=== PATIENT | female | born 1965 | race Caucasian/White ===

== ENCOUNTER 2022-07-17 15:14 | Day surgery (SDC) | payer OTHER ==
[2022-07-17] MEDS ORDERED: BUPIVACAINE 0.5% VIAL IJ ONE (15:15)
[2022-07-17] MEDS ORDERED: LIDOCAINE HCL 1% 50 MG/5 ML VL PF IJ ONE (15:15)
[2022-07-17] MEDS ORDERED: Depo-Medrol 40 MG/ML IM ONE (15:15)
--- NOTE | 2022-07-17 18:33 | XRAY ---
Indication: Left knee injection. Intraoperative fluoroscopy provided for 6 seconds. Single digital spot image submitted for interpretation demonstrates needle tip projecting over the left femur intercondylar notch. Small amount of contrast injected for needle tip placement. Correlate with intraoperative findings/report.
--- NOTE | 2022-07-17 18:33 | XRAY ---
Indication: Right knee injection. Intraoperative fluoroscopy provided for 3 seconds. Single digital spot image submitted for interpretation demonstrates needle tip projecting over the right femur intercondylar notch. Small amount of contrast injected for needle tip placement. Correlate with intraoperative findings/report.
--- NOTE | 2022-07-18 17:15 | XRAY ---
3 seconds of fluoroscopy was used in surgery for a right knee intra-articular injection.
--- NOTE | 2022-07-18 17:15 | XRAY ---
6 seconds of fluoroscopy was used in surgery for a left knee intra-articular injection.
== END 2022-07-17 16:30 | disposition home or self-care (01) ==
LOC: SDC-PAIN 15:14
PROVIDERS: ATTEND Psychiatry & Neurology Pain Medicine
DX: M17.0 Bilateral primary osteoarthritis of knee (principal); Z79.899 Other long term (current) drug therapy
CPT/HCPCS: 20610; 73560; 77002; 82947; J1030; J2001; Q9966

== ENCOUNTER 2023-11-27 15:36 | Day surgery (SDC) | payer OTHER ==
[2023-11-27] MEDS ORDERED: Depo-Medrol 40 MG/ML IM ONE (15:37)
[2023-11-27] MEDS ORDERED: LIDOCAINE HCL 1% 50 MG/5 ML VL PF IJ ONE (15:37)
[2023-11-27] MEDS ORDERED: BUPIVACAINE 0.5% VIAL IJ ONE (15:37)
--- NOTE | 2023-11-27 20:38 | XRAY ---
Indication: Right knee injection. Intraoperative fluoroscopy provided for 6 seconds. Single digital spot image submitted for interpretation demonstrates needle tip projecting over the right femur intercondylar notch. Small amount of contrast injected for needle tip placement. Correlate with intraoperative findings/report.
--- NOTE | 2023-11-27 20:38 | XRAY ---
Indication: Left knee injection. Intraoperative fluoroscopy provided for 4 seconds. Single digital spot image submitted for interpretation demonstrates needle tip projecting over the left femur intercondylar notch. Small amount of contrast injected for needle tip placement. Correlate with intraoperative findings/report.
--- NOTE | 2023-12-01 13:14 | XRAY ---
6 seconds of fluoroscopy was used in surgery for a right intra-articular knee injection.
--- NOTE | 2023-12-01 13:14 | XRAY ---
4 seconds of fluoroscopy was used in surgery for a left intra-articular knee injection.
== END 2023-11-27 17:50 | disposition home or self-care (01) ==
LOC: SDC-PAIN 15:36
PROVIDERS: ATTEND Psychiatry & Neurology Pain Medicine
DX: M17.0 Bilateral primary osteoarthritis of knee (principal)
CPT/HCPCS: 20610; 73560; 77002; J2001; Q9966